=== PATIENT | male | born 1930 | race Caucasian/White ===

== ENCOUNTER 2016-10-06 11:21 | Inpatient (IN) ==
[2016-10-06] MEDS ORDERED: NS 1,000 ML IV ONE (11:49)
[2016-10-06 11:57] LABS: MANUAL DIFF NEEDED? NO
[2016-10-06 12:00] LABS: BASO% 0.5 % (0.0-0.8); EOS# 0.37 X1000 (0.0-0.7); EOS% 2.6 % (0.0-10.0); HEMATOCRIT 49.2 % (42.0-52.0); HEMOGLOBIN 17.2 g/dL (14.0-18.0); IMM GRAN# 0.07 X1000 (0.0-0.04); IMM GRAN% 0.5 % (0.0-0.5); LYMPH# 3.19 X1000 (1.2-3.4); LYMPH% 22.8 % (20.5-51.1); MCH 28.9 PG (27-31); MCV 82.7 FL (81-99); MONO# 0.86 X1000 (0.11-0.59); MONO% 6.1 % (1.7-9.3); MPV 11.3 FL (7.4-10.4); NEUT% 67.5 % (42.2-75.2); PLT 266 X1000 (130-400); RBC 5.95 XMIL (4.7-6.1)
[2016-10-06 12:03] LABS: INR 1.01 (0.86-1.15); PROTIME 13.6 Seconds (12.1-15.5)
[2016-10-06 12:04] LABS: PTT PL 28.7 Seconds (22.6-43.9)
[2016-10-06 12:15] LABS: ALBUMIN 3.8 g/dL (3.5-5.0); CALCIUM 9.7 mg/dL (8.8-10.2); MAGNESIUM 1.8 mg/dL (1.5-2.7); POTASSIUM 3.6 mmol/L (3.5-5.1); TOTAL BILIRUBIN 0.6 mg/dL (0.20-1.00); TOTAL PROTEIN 7.5 g/dL (6.3-8.3)
[2016-10-06] MEDS ORDERED: NS 500 ML ONE (12:24)
[2016-10-06] MEDS ORDERED: NS 500 ML IV ONE (12:28)
--- NOTE | 2016-10-06 12:36 | Diag Imaging Result Document ---
PROCEDURE NAME: CHEST-PORTABLE - 10/06/2016 PORTABLE CHEST: COMPARISON: 05/13/2014. FINDINGS: The lungs are well expanded. The heart is not enlarged. Sternal wires are present. The vessels are not distended. There are no infiltrates. No pleural effusions identified. IMPRESSION: No pneumonia.
--- NOTE | 2016-10-06 12:48 | EKG Report ---
Test Performed on : 10/06/2016 12:43:46 PM Test Reason : CHEST PAIN Blood Pressure : / mmHG Vent. Rate : 068 BPM Atrial Rate : 068 BPM P-R Int : 262 ms QRS Dur : 158 ms QT Int : 496 ms P-R-T Axes : 073 -75 093 degrees QTc Int : 527 ms Sinus rhythm. with 1st degree AV block. Right bundle branch block Left anterior fascicular block Bifascicular block Left ventricular hypertrophy with repolarization abnormality Lateral infarct , age undetermined Abnormal ECG When compared with ECG of 15-MAR-2013 14:57, Significant changes have occurred Unconfirmed Result
--- NOTE | 2016-10-06 13:04 | PROVIDER DOCUMENTATION ---
This chart was entered by Paty Roe Scribe, acting as scribe for Francie Alejo MD. HPI-General Adult - General Chief Complaint: High Blood Sugar Stated Complaint: B/P PROBLEMS/WEAKNESS Time Seen by Provider: 10/06/16 11:41 Source: patient, family (son and daughter) Allergies/Adverse Reactions: Patient Allergies Allergy/AdvReac Type Severity Reaction Status Date / Time No Known Allergies Allergy Verified 10/06/16 11:37 Home Medications: Home Medication List Medication Instructions Recorded Confirmed Last Taken Type Fenofibrate [Tricor] 145 mg PO DAILY 03/15/13 10/06/16 01/05/14 21:00 History Levothyroxine [Synthroid] 100 microgm PO DAILY 03/15/13 10/06/16 01/05/14 21:00 History Gilbert-3 Acid Ethyl Esters [Lovaza] 3 tab PO DAILY 03/15/13 10/06/16 01/05/14 21: 00 History Hydralazine [Apresoline] 25 mg PO TID #90 tablet 03/17/13 10/06/16 01/05/14 21: 00 Rx BENAZEpril [Lotensin] 20 mg PO DAILY 01/06/14 10/06/16 Unknown History Desvenlafaxine E.r. [Pristiq ER] 50 mg PO DAILY 01/06/14 10/06/16 Unknown History Hydrocodone Bit/Acetaminophen 1 each PO Q4H PRN 01/06/14 10/06/16 Unknown History [Hydrocodon-Acetaminophn 10-325] Metoprolol Succinate E.r. [Toprol 25 mg PO DAILY 01/06/14 10/06/16 Unknown History Xl] PRAVAstatin [Pravachol] 40 mg PO DAILY 01/06/14 10/06/16 Unknown History Pantoprazole [Protonix] 40 mg PO DAILY@0700 01/06/14 10/06/16 Unknown History Repaglinide [Prandin] 0.5 mg PO TID CC 01/06/14 10/06/16 Unknown History Tolterodine Tartrate [Tolterodine 4 mg PO DAILY 01/06/14 10/06/16 Unknown History Tartrate ER] Ciprofloxacin HCl [Cipro] 500 mg PO BID #0 tablet 01/08/14 10/06/16 Unknown Rx Sitagliptin [Januvia] 100 mg PO DAILY #0 tablet 01/08/14 10/06/16 Unknown Rx Doxycycline [Vibramycin] 100 mg PO BID #20 tablet 05/13/14 10/06/16 Unknown Rx Ondansetron [Ondansetron Odt] 4 mg PO Q6-8H PRN PRN #20 05/13/14 10/06/16 Unknown Rx tab.rapdis Oseltamivir [Tamiflu] 75 mg PO BID #10 capsule 05/13/14 10/06/16 Unknown Rx Tramadol HCl [Ultram] 50 mg PO Q6H PRN PRN #20 tablet 05/13/14 10/06/16 Unknown Rx - History of Present Illness -Gen Adult Nature of Presenting Problems: Pt is 85 y/o M presents to the ED with muscle aches and weakness. Pt's daughter states Pt has not been taking meds correctly. Pt's daughter states Pt does not check blood sugar or blood pressure regularly. Pt denies pain Location of Pain/Injury: reports: generalized Pain Radiation: reports: no radiation Quality of Pain: reports: aching Severity: reports: mild Onset/Duration: reports: gradual Timing: reports: still present Context/Activities at Onset: reports: light activity Modifying Factors: improves with: nothing Associated Symptoms: reports: muscle aches, weakness. denies: anxiety, arm pain , back/neck pain, chest pain, constipation, cough, diaphoresis, diarrhea, dizziness, EENT symptoms, fatigue, fever/chills, genitourinary problems, headaches, heartburn, joint pain, loss of appetite, malaise, sinus congestion/ drainage, nausea, rash, seizure, shortness of breath, sensory/motor loss, pain with inspiration, swelling/mass in abdomen, syncope, vomiting, trouble walking Similar Symptoms Previously?: Yes Recently seen or treated by another doctor?: No - Diabetes Related Context Context: reports: high blood sugar Review of Systems - Adult - REVIEW OF SYSTEMS - ADULT Constitutional: reports: no symptoms reported Eyes: reports: no symptoms reported Ears, Nose, Mouth & Throat: reports: no symptoms reported Cardiovascular: reports: no symptoms reported Respiratory: reports: no symptoms reported Gastrointestinal: reports: no symptoms reported Genitourinary: reports: no symptoms reported Musculoskeletal: reports: muscle aches, muscle weakness. denies: bone pain, joint pain, neck pain Integumentary: reports: no symptoms reported Neurological: reports: no symptoms reported Psychiatric: reports: no symptoms reported Endocrine: reports: no symptoms reported Hematologic/Lymphatic: reports: no symptoms reported Allergic/Immunologic: reports: no symptoms reported All Other Systems: Reviewed and Negative Past History - Adult - PAST MEDICAL HISTORY-ADULT Review of Records: reports: Nursing Assessment Review, Medications Reviewed, Social history reviewed & non-contributory. Major Childhood Illnesses: reports: denies history Cardiovascular: reports: cardiac disease, HTN, hyperlipidemia, other (open heart ) Respiratory: reports: denies history Gastrointestinal: reports: GERD Obstetrical/Gynecological: reports: denies history Genitourinary: reports: denies history Musculoskeletal: reports: denies history Neurological: reports: denies history Endocrine/Immune: reports: Diabetes, thyroid disorder Other Conditions: reports: other cancer (melanoma) - PRIOR SURGERIES/PROCEDURES Surgical/Procedure History: reports: CABG, orthopedic (extremity) (knee replacement), back/neck (back surgery, ), other (cataract removal, open heart surgery 2012, melanoma removed from the back) - IMMUNIZATION STATUS Childhood Immunizations: See Nurse Assessment Flu Vaccine: See Nurse Assessment - FAMILY HISTORY Family History: reviewed, not pertinent - SOCIAL HISTORY Smoking: quit greater than 1 year, cigarettes Substance Use: denies Living Situation: family Physical Exam-General - PHYSICAL EXAM-ADULT Initial Vital Signs Reviewed: Yes - CONSTITUTIONAL General Appearance: appears well, alert, no apparent distress - EYES Eyes: PERRL/EOMI, pink conjunctivae - HEAD, EARS, NOSE, MOUTH & THROAT HENMT: normocephalic/atraumatic, moist mucous membranes, normal ENT inspection, TMs normal, pharynx normal - NECK Neck: non-tender, full range of motion, supple, normal inspection - RESPIRATORY Respiratory: chest non-tender, lungs clear, normal breath sounds, no pleuratic chest pain, no respiratory distress, no accessory muscle use - CARDIOVASCULAR Cardiovascular: normal peripheral pulses, regular rate, rhythm, no edema, no gallop, no JVD, no murmur - GASTROINTESTINAL (ABDOMEN) Abdominal Exam: normal bowel sounds, non tender, soft, no organomegaly, no pulsatile mass - LYMPHATIC Lymphatic: no adenopathy - MUSCULOSKELETAL Back Exam: normal inspection, no CVA tenderness, no vertebral tenderness Extremity: normal range of motion, non-tender, normal gait, normal inspection - SKIN Integumentary: normal color, normal turgor, warm/dry - NEUROLOGIC Neurologic: grossly normal - PSYCHIATRIC Psych/Mental Status: normal mood/affect, oriented x 3 Progress - PLAN OF CARE/RESULTS Progress/Plan/Lab Results: Vital Signs - 8 hr 10/06/16 11:30 10/06/16 11:56 Temperature 97.0 F L Pulse Rate 78 Respiratory Rate 16 Blood Pressure 088/051 66/47 O2 Sat by Pulse Oximetry 92 L Orders Category Date Time Status Cardiac Monitoring DIRECTED Care 10/06/16 11:50 Active Finger Stick Blood Sugar (ED) DIRECTED Care 10/06/16 11:49 Active Saline Loc NOW Care 10/06/16 11:50 Active CHEST-PORTABLE [RAD] Stat Exams 10/06/16 11:49 Ordered BLOOD CULTURE [BLDCUL] Stat Lab 10/06/16 11:49 Ordered CBC WITH ELECTRONIC DIFF [HEME] Stat Lab 10/06/16 11:35 Received CK PROFILE [SP CHEM] Stat Lab 10/06/16 11:35 Received COMPREHENSIVE METABOLIC PANEL [CHEM] Stat Lab 10/06/16 11:35 Received MAGNESIUM [CHEM] Stat Lab 10/06/16 11:35 Received PRO B-NATRIURETIC PEPTIDE Stat Lab 10/06/16 11:35 Received [address]IME WITH INR PL [COAG] Stat Lab 10/06/16 11:[address] [COAG] Stat Lab 10/06/16 11:35 Received TROPONIN T Stat Lab 10/06/16 11:[address] W/POSS RFLX CULT [URINALYSIS] Stat Lab 10/06/16 11:49 Uncollected 0.9% Sodium Chloride Inj [Ns] 1,000 ml Med 10/06/16 11:49 Active IV 999 mls/hr EKG [EKG] Stat Ther 10/06/16 11:50 Ordered Result Diagrams: 10/06/16 11:35 10/06/16 11:35 - XRAY 1 XRAY Study: Chest Impression: Normal XRAY Interpretation: negative - CONSULTS/PCP/HOSPITALIST Notification #1 *Consult/PCP/Hospitalist*: Dr. Forman Time Discussed: 12:46 Reason/Comments: Dr. Alejo consulted with Dr. Forman about admit of Pt Consult Disposition: Admit Departure - Departure Time of Disposition Decision: 13:03 DIAGNOSIS: Acute renal failure Qualifiers: Acute renal failure type: unspecified Qualified Code(s): N17.9 - Acute kidney failure, unspecified CHF (congestive heart failure) Qualifiers: Congestive heart failure type: unspecified congestive heart failure type Congestive heart failure chronicity: acute Qualified Code(s): I50.9 - Heart failure, unspecified Disposition: ADMITTED INPATIENT 09 Certified Medical Emergency: Emergent Condition: Stable Referrals and Follow-Ups: Bentley Forman MD [Primary Care Provider] - - Critical Care Note This patient required my direct & personal management of CC.: No This chart was documented by the indicated scribe, (Paty Roe Scribe) and accurately reflects the services I performed and decisions made by me, Francie Alejo MD, as attested by the provider's signature.
[2016-10-06 14:04] LABS: URINE CULTURE PL NEEDED? NO
[2016-10-06 14:20] LABS: BILIRUBIN URINE 2+ (NEGATIVE); BLOOD URINE NEGATIVE (NEGATIVE); CLARITY CLEAR (CLEAR); COLOR YELLOW; LEUKOCYTES URINE 1+ (NEGATIVE); NITRITE URINE NEGATIVE (NEGATIVE); PH URINE 6.5; PROTEIN URINE 1+(30 mg/dL) mg/dL (NEGATIVE); URINE SOURCE CATH; UROBILINOGEN URINE 1+(1 mg/dL)
[2016-10-06 14:21] LABS: URINE EPITHELIAL CELLS <10 /HPF (<10); URINE RBC <10 /HPF (<10); URINE WBC <10 /HPF (<10)
[2016-10-06] MEDS ORDERED: TYLENOL PO PRN (20:38)
[2016-10-06] MEDS ORDERED: ZOFRAN IV PRN (20:38)
[2016-10-06] MEDS: NS 1,000 ML IV SCH (21:16)
[2016-10-06] MEDS: HUMALOG (PARKWAY) SUBQ SCH (21:36)
[2016-10-07] MEDS: PRILOSEC PO SCH (06:03)
[2016-10-07] MEDS: HUMALOG (PARKWAY) SUBQ SCH ×3 (06:03→17:03)
[2016-10-07] MEDS: SYNTHROID PO SCH (06:03)
[2016-10-07 06:53] LABS: HEMATOCRIT 46.3 % (42.0-52.0); HEMOGLOBIN 15.9 g/dL (14.0-18.0); MCH 28.9 PG (27-31); MCHC 34.3 g/dL (33-37); MPV 11.6 FL (7.4-10.4); RBC 5.51 XMIL (4.7-6.1)
[2016-10-07 07:07] LABS: ALBUMIN 3.3 g/dL (3.5-5.0); CALCIUM 8.8 mg/dL (8.8-10.2); MAGNESIUM 1.6 mg/dL (1.5-2.7); POTASSIUM 3.8 mmol/L (3.5-5.1); TOTAL BILIRUBIN 0.5 mg/dL (0.20-1.00); TOTAL PROTEIN 6.4 g/dL (6.3-8.3)
[2016-10-07] MEDS: DUONEB (A & A) INH PRN ×4 (07:49→20:50)
[2016-10-07] MEDS: NEURONTIN PO SCH (08:36)
[2016-10-07] MEDS: VESICARE PO SCH (08:36)
[2016-10-07] MEDS: NS 1,000 ML IV SCH (10:41)
[2016-10-07] MEDS: HUMALOG DOSE (PARKWAY) SUBQ SCH (21:14)
[2016-10-08 05:55] LABS: HEMATOCRIT 43.7 % (42.0-52.0); MCHC 34.3 g/dL (33-37); MCV 84.4 FL (81-99); MPV 11.8 FL (7.4-10.4); RBC 5.18 XMIL (4.7-6.1)
[2016-10-08 06:13] LABS: ALBUMIN 3.2 g/dL (3.5-5.0); CALCIUM 8.9 mg/dL (8.8-10.2); MAGNESIUM 1.5 mg/dL (1.5-2.7); POTASSIUM 4.4 mmol/L (3.5-5.1); TOTAL BILIRUBIN 0.7 mg/dL (0.20-1.00); TOTAL PROTEIN 6.4 g/dL (6.3-8.3)
[2016-10-08] MEDS: HUMALOG DOSE (PARKWAY) SUBQ SCH ×4 (06:23→21:19)
[2016-10-08] MEDS: PRILOSEC PO SCH (06:24)
[2016-10-08] MEDS: SYNTHROID PO SCH (06:24)
[2016-10-08] MEDS: DUONEB (A & A) INH PRN ×2 (08:45→11:35)
[2016-10-08] MEDS: NEURONTIN PO SCH (09:07)
[2016-10-08] MEDS: VESICARE PO SCH (09:07)
[2016-10-08] MEDS: LOTENSIN PO SCH (11:07)
[2016-10-08] MEDS: LANTUS INSULIN (PARKWAY) SUBQ SCH ×2 (11:09→21:18)
[2016-10-08] MEDS ORDERED: CALMOSEPTINE OINTMENT TOP PRN (14:02)
--- NOTE | 2016-10-08 16:46 | PROGRESS NOTE ---
DATE: 10/08/2016 SUBJECTIVE: The patient currently is sedated and sleeping. He does awaken. He does answer questions, but not always appropriately. OBJECTIVE: Vital Signs: Reviewed. His blood pressure is more stable, in the 120s systolic. Heart rate 80. Respiratory rate 20. General: Patient is a well-developed, elderly male who appears his stated age. He is in no respiratory distress. He does awaken and answer questions, but otherwise close his eyes and does not participate in the conversation. HEENT: Normocephalic, atraumatic. GARETH. Neck: Supple. Cardiovascular: Regular rate. Chest: Relatively clear. Abdomen: Soft. Extremities: Moves all extremities. Neurologic: No focal changes. Skin: Warm and dry. No rashes. LABORATORIES: BUN 19. Creatinine 1.2. ASSESSMENT: 1. Acute volume depletion, resolved. 2. Acute renal failure secondary to volume depletion, resolved. 3. Acute delirium, metabolic encephalopathy. 4. Concerned that patient may have a urinary tract infection. We will start on Rocephin. 5. Adult failure to thrive. 6. Situational depression. Patient has continued to decline after his 's passing. PLAN: Patient will need rehabilitation upon discharge. We will get Physical Therapy involved. We will continue to follow his acute mental status changes. Further orders as needed. cc: Bentley Forman MD
[2016-10-08] MEDS: PRAVACHOL PO SCH (20:36)
[2016-10-09] MEDS: DUONEB (A & A) INH PRN ×2 (07:35→11:40)
[2016-10-09] MEDS: VESICARE PO SCH (09:57)
[2016-10-09] MEDS: NEURONTIN PO SCH (09:57)
[2016-10-09] MEDS: LANTUS INSULIN (PARKWAY) SUBQ SCH ×2 (09:57→22:04)
[2016-10-09] MEDS: LOTENSIN PO SCH (09:57)
[2016-10-09] MEDS ORDERED: ATIVAN PO PRN (10:40)
[2016-10-09] MEDS ORDERED: ROCEPHIN 1 GM/NS 1 GM/50 ML IVPB IV SCH (11:00)
[2016-10-09] MEDS: HUMALOG DOSE (PARKWAY) SUBQ SCH ×4 (12:05→22:03)
--- NOTE | 2016-10-09 12:08 | PROGRESS NOTE ---
DATE: 10/07/2016 SUBJECTIVE: Patient lying in bed. He is awake but somewhat confused. Does not answer questions appropriately. The daughter notes that he was agitated a lot last night and had difficulty sleeping. Notes he has not eaten anything this morning. PHYSICAL: Temp 98 degrees, pulse 83, respiratory 18, BP 133/68.General: Patient is awake, alert. He is currently in no respiratory distress. He is confused and disoriented. Does not answer questions appropriately. He is lying in the bed with his eyes closed. HEENT: Normocephalic, atraumatic. GARETH. Neck: Supple. CV: Regular rate. Chest: Clear. Abdomen: Soft. Extremities: Moves all extremities. Neurologic: No changes. DIAGNOSTIC DATA: WBC is 12, hemoglobin and hematocrit 30 and 1.8. ASSESSMENT: 1. Acute renal failure secondary to volume depletion improving, creatinine was 3.2 yesterday. 2. Acute metabolic encephalopathy secondary to acute renal failure. No current signs or symptoms of infection. 3. Volume depletion causing acute renal failure. 4. Hypertension. 5. Diabetes with poor home control. 6. Adult failure to thrive. 7. Noncompliance. PLAN: Will continue patient in the hospital today. Begin discussion with family regarding DNR. We will begin discussing with them as well short-term and possible long-term care options of rehab and half-way. We will continue IV fluids. Continue to encourage p.o. and further orders as needed. cc: Bentley Forman MD
--- NOTE | 2016-10-09 12:11 | PROGRESS NOTE ---
DATE: 10/09/2016 SUBJECTIVE: Patient is much more awake, alert, oriented this morning. The daughter notes that he ate breakfast this morning. He was confused last night but did sleep better. Upon awakening this morning he seems much more back to his usual self. He is still tired and fatigued. He has not been getting out of bed. PHYSICAL: Temp 98 degrees, pulse 58, respiratory 18, blood pressure 167/74.General: Patient is awake, alert, oriented male, who is in no respiratory distress. He is still a little slow to respond to questions, but is much closer to his baseline orientation. HEENT: Normocephalic atraumatic. Neck: Supple. CV: Regular rate. Chest: Relatively clear. Abdomen: Soft nondistended. Extremities: Moves all extremities. Neurologic: No focal changes. Skin: Warm and dry. No rashes. LABS: Reviewed. ASSESSMENT: 1. Acute volume depletion resolved. Patient is starting to eat and drink better. 2. Diabetes with poor intentional uncontrol. Patient just simply decided he no longer wanted to take his insulin at home. He is currently improving. 3. Acute renal failure resolved. 4. Metabolic encephalopathy secondary to acute renal failure and hyperglycemia resolved. 5. Adult failure to thrive. Will continue physical therapy. Patient most likely will need rehab early next week. cc: Bentley Forman MD
[2016-10-09] MEDS: PRILOSEC PO SCH (12:46)
[2016-10-09] MEDS: SYNTHROID PO SCH (12:47)
[2016-10-09] MEDS: MYCOSTATIN POWDER TOP SCH (18:29)
[2016-10-09] MEDS: DIFLUCAN PO SCH (18:30)
[2016-10-09 20:31] LABS: BILIRUBIN URINE NEGATIVE (NEGATIVE); BLOOD URINE TRACE (NEGATIVE); CLARITY CLEAR (CLEAR); COLOR YELLOW; LEUKOCYTES URINE 1+ (NEGATIVE); NITRITE URINE NEGATIVE (NEGATIVE); PROTEIN URINE NEGATIVE (NEGATIVE); URINE CAST NONE SEEN /LPF; URINE CRYSTAL NONE SEEN /HPF; URINE CULTURE PL NEEDED? YES; URINE EPITHELIAL CELLS <10 /HPF (<10); URINE RBC <10 /HPF (<10); URINE SOURCE CLEAN CATCH; UROBILINOGEN URINE 1+(1 mg/dL)
[2016-10-09] MEDS ORDERED: SEROQUEL PO SCH (21:00)
[2016-10-09] MEDS: PRAVACHOL PO SCH (22:04)
[2016-10-10 06:24] LABS: HEMATOCRIT 44.8 % (42.0-52.0); HEMOGLOBIN 15.4 g/dL (14.0-18.0); MCH 28.9 PG (27-31); MCHC 34.4 g/dL (33-37); MCV 84.2 FL (81-99); MPV 12.3 FL (7.4-10.4); RBC 5.32 XMIL (4.7-6.1)
[2016-10-10] MEDS: HUMALOG DOSE (PARKWAY) SUBQ SCH ×4 (06:26→21:02)
[2016-10-10] MEDS: PRILOSEC PO SCH (06:27)
[2016-10-10] MEDS: SYNTHROID PO SCH (06:27)
[2016-10-10 07:01] LABS: AGAP 14; ALBUMIN 3.6 g/dL (3.5-5.0); ALKALINE PHOSPHATASE 122 U/L (32-122); BUN 15 mg/dL (8-22); CALCIUM 9.5 mg/dL (8.8-10.2); CHLORIDE 101 mmol/L (98-107); COSMO 279; GOT 26 U/L (10-34); GPT 12 U/L (10-44); MAGNESIUM 1.7 mg/dL (1.5-2.7); POTASSIUM 4.2 mmol/L (3.5-5.1); SODIUM 138 mmol/L (136-145); TCO2 23 mmol/L (25-35); TOTAL PROTEIN 6.2 g/dL (6.3-8.3)
[2016-10-10] MEDS: DUONEB (A & A) INH PRN (07:46)
[2016-10-10] MEDS: LANTUS INSULIN (PARKWAY) SUBQ SCH ×2 (08:57→21:01)
[2016-10-10] MEDS: LOTENSIN PO SCH (08:57)
[2016-10-10] MEDS: NEURONTIN PO SCH (08:57)
[2016-10-10] MEDS: DIFLUCAN PO SCH (08:57)
[2016-10-10] MEDS: VESICARE PO SCH (08:57)
[2016-10-10] MEDS: MYCOSTATIN POWDER TOP SCH ×3 (08:58→17:00)
--- NOTE | 2016-10-10 09:22 | Diag Imaging Result Document ---
PROCEDURE NAME: CHEST-2 VIEWS - 10/10/2016 CHEST 2 VIEWS: Compared with portable exam 10/06/2016. FINDINGS: Heart size is within normal limits. The lungs appear essentially clear. There is no pleural effusion or pneumothorax identified. IMPRESSION: No evidence of acute disease.
[2016-10-10] MEDS ORDERED: SEROQUEL PO PRN (12:06)
--- NOTE | 2016-10-10 15:24 | PROGRESS NOTE ---
DATE: 10/10/2016 SUBJECTIVE: Patient without any complaints. He did try to get out of bed some yesterday but was very weak and tired. He is going to attempt again today. PHYSICAL: Vital signs: Temperature 98, pulse 60, respiratory 18, BP 155/62, saturations 97% on room air. General: Patient is awake, alert, oriented. He is in no distress. Speech is regular. Memory is intact. He does have intermittent episodes of confusion. Neck: Supple. CV: Regular rate. Chest: Clear, nonlabored. Abdomen: Soft. Extremities: Moves all extremities. Neurologic: No changes. LABS: Reviewed and normal. ASSESSMENT: 1. Hypertension . Continue benazepril, increase to 40 mg. 2. Adult failure to thrive. Continue physical therapy. 3. Diabetes with poor home control. Continue his current medications. Will increase his Lantus slightly from 15 to 17 units and continue to follow. 4. Candidiasis. Continue Diflucan. Will stop Rocephin as his urine cultures are negative. Blood cultures are negative. No other source of infection. PLAN: Will continue as above, hopefully to rehab in the next day or 2. cc: Bentley Forman MD
[2016-10-10] MEDS ORDERED: CATAPRES PO ONE (16:32)
[2016-10-10] MEDS ORDERED: CATAPRES PO PRN (16:32)
[2016-10-10] MEDS: PRAVACHOL PO SCH (21:02)
[2016-10-10] MEDS ORDERED: MIRALAX PO ONE (21:13)
--- NOTE | 2016-10-11 05:08 | PROGRESS NOTE ---
DATE: 10/07/2016 ADDENDUM REPORT I had a lengthy discussion with the daughter and the son regarding DNR and comfort care regarding current condition. I discussed with them options of senior living versus in home care. I discussed with them rehab, etc. We will continue to follow. They note that he does have a living will, but they are unclear as to the direction and will attempt to find this. cc: Bentley Forman MD
[2016-10-11] MEDS: SYNTHROID PO SCH (06:43)
[2016-10-11] MEDS: PRILOSEC PO SCH (06:43)
[2016-10-11] MEDS: HUMALOG DOSE (PARKWAY) SUBQ SCH ×2 (06:43→11:34)
[2016-10-11] MEDS ORDERED: SEROQUEL PO PRN (07:09)
[2016-10-11] MEDS: DUONEB (A & A) INH PRN ×2 (07:31→15:50)
[2016-10-11] MEDS: VESICARE PO SCH (08:39)
[2016-10-11] MEDS: DIFLUCAN PO SCH (08:39)
[2016-10-11] MEDS: NEURONTIN PO SCH (08:39)
[2016-10-11] MEDS: LANTUS INSULIN (PARKWAY) SUBQ SCH (08:40)
[2016-10-11] MEDS ORDERED: LOTENSIN PO SCH (09:00)
[2016-10-11] MEDS ORDERED: MIRALAX PO SCH (09:00)
[2016-10-11] MEDS: MYCOSTATIN POWDER TOP SCH ×2 (09:32→14:34)
[2016-10-11 16:29] VITALS: BP 146/65
--- NOTE | 2016-10-11 16:30 | DISCHARGE SUMMARY ---
ADMISSION DATE: 10/06/2016 DISCHARGE DATE: 10/11/2016 DISCHARGE DIAGNOSIS: 1. Volume depletion, resolved. 2. Acute renal failure secondary to volume depletion, resolved. Creatinine 1.1 on discharge, was 3.2 on admit. 3. Leukocytosis, likely stress resolved. 4. Diabetes with much better control in the hospital. Patient been noncompliant at home. 5. Congestive heart failure. B-type natriuretic peptide 7000 on admit and 3000 on discharge. 6. Mild protein calorie malnutrition. 7. Candidiasis, improved. 8. Hypertension. Patient's blood pressures are better. Did restart his benazepril and increased to 40. Have continued to hold Apresoline. CONSULTATIONS: None. PROCEDURES: None. BRIEF HOSPITAL COURSE: The patient is an 85-year-old male who was admitted as noted in the HPI with metabolic encephalopathy secondary to his acute renal failure and dehydration. His metabolic encephalopathy resolved. On discharge, the patient is awake, alert. He is in no distress. However, he continued to exhibit symptoms of failure to thrive and does not have any real desire to get out of bed at this point. He still is having difficulty managing his own medications. DISPOSITION: Patient will be discharged to rehab. He will continue physical therapy and medication control there. Discussed with the family on multiple different occasions DNR. They still have been reluctant to make a decision one way or the other. Continue his medications as listed. . cc: Bentley Forman MD
--- NOTE | 2016-10-11 16:48 | HISTORY AND PHYSICAL ---
CHIEF COMPLAINT: Altered mental status. HISTORY OF PRESENT ILLNESS: Patient is an 85-year-old male who presented to [facility] with his family noting he was confused, disoriented, has not been getting out of bed. He has not been taking his medications. They note he has been tired, fatigued, and weak. ALLERGIES: No known drug allergies. MEDICATIONS: TriCor 145, Synthroid 100, Lovaza 3 a day, Apresoline 25 a day 3 times a day, benazepril 20 mg a day, Pristiq ER 50, hydrocodone p.r.n., Toprol 25 daily, Pravachol 40, Protonix 40, Januvia 100. REVIEW OF SYSTEMS: Essentially unobtainable from Mr. Raines due to his acute mental status change. However the family notes that he has had decreased oral intake, decreased physical activity. He has not been taking his medications. He has not taken his insulin because he stated he just did not want to. He denies any other GI or issues. Denies any fevers or chills. PHYSICAL EXAMINATION: VITAL SIGNS: Reviewed. Temperature 97 degrees, pulse 78, respiratory 16, blood pressure 88/59, saturation 92% on room air. GENERAL: Patient is awake, alert. He is in no respiratory distress. He is confused, does not answer questions. He is sitting in the bed with his eyes closed. HEENT: Normocephalic, atraumatic. PERRL. NECK: Supple. CARDIOVASCULAR: Regular rate. CHEST: Clear. Nonlabored. ABDOMEN: Soft. No masses. EXTREMITIES: Moves all extremities. NEUROLOGIC: Patient is noted to move all 4 extremities. Does not answer questions appropriately. DIAGNOSTIC DATA: WBCs 14. CMP essentially normal. Sodium 134, BUN 32, creatinine 3.2. ASSESSMENT: 1. Acute renal failure secondary to volume depletion. 2. Volume depletion secondary to poor oral intake. 3. Leukocytosis, likely stress reaction. 4. Hyperglycemia in a patient with known diabetes and poor home control. 5. Congestive heart failure, systolic. 6. Acute situational depression. PLAN: We will admit patient to the hospital. IV fluids. We will hold his blood pressure medications as his blood pressures were noted to be in the 60s and 70s in the ER. We will continue to follow. Further orders as needed. cc: Bentley Forman MD
== END 2016-10-11 19:27 ==
LOC: P.ED 11:21 → SUATTDRO 14:58 → P.MEDSURG 14:58
PROVIDERS: ADMIT Family Medicine; ATTEND Family Medicine